=== PATIENT | female | born 1980 | race Caucasian/White ===

== ENCOUNTER 2020-09-18 19:36 | Emergency (ER) | payer OTHER ==
[~2020-09-18] VITALS: Ht 157.5 cm; Wt 67.6 kg
[2020-09-18 20:08] VITALS: BP 102/56
[2020-09-18 21:50] VITALS: BP 94/64
== END 2020-09-18 21:50 | disposition home or self-care (01) ==
LOC: MED 19:36
DX: R19.7 Diarrhea, unspecified (principal); Z20.822 Contact with and (suspected) exposure to COVID-19
CPT/HCPCS: 99283; U0003